=== PATIENT | male | born 1985 | race Caucasian/White ===

== ENCOUNTER → 2016-04-05 | Outpatient (REF) | payer OTHER ==
[~2016-04-05] MED LIST: /MAGN40TA PO; ADDE20CA PO; CLAR1TAB2 PO; FIRS3SUS PO; HYDR10EL PO; HYDRO50TAB PO; IRON65TA PO; KRATOM; NAPR1TAB86 PO
[2016-04-05 19:56] LABS: ALBUMIN 2.8 GM/DL (3.2-5.2); ALBUMIN/GLOBULIN RATIO 1.08 (1.00-1.93); ALKALINE PHOSPHATASE 62 U/L (45-117); ALT/SGPT 31 U/L (12-78); ANION GAP 8 MEQ/L (8-16); AST/SGOT 23 U/L (15-37); BILIRUBIN,TOTAL 0.2 MG/DL (0.2-1.0); BLOOD UREA NITROGEN 14 MG/DL (7-18); CALCIUM LEVEL 7.9 MG/DL (8.5-10.1); CARBON DIOXIDE LEVEL 28 MEQ/L (21-32); CHLORIDE LEVEL 107 MEQ/L (98-107); CREATININE FOR GFR 0.91 MG/DL (0.70-1.30); GLOMERULAR FILTRATION RATE > 60.0 (>60); GLUCOSE, FASTING 102 MG/DL (70-105); POTASSIUM SERUM 4.1 MEQ/L (3.5-5.1); SODIUM LEVEL 143 MEQ/L (136-145); TOTAL PROTEIN 5.4 GM/DL (6.4-8.2)
[2016-04-05 22:06] LABS: DIFF SLIDE NUMBER 336; MEAN CORPUSCULAR HEMOGLOBIN 17.9 pg (27.0-33.0); MEAN CORPUSCULAR HGB CONC 25.3 g/dl (32.0-36.5); MEAN CORPUSCULAR VOLUME 70.5 fl (80.0-96.0); PLATELET COUNT, AUTOMATED 449 k/mm3 (150-450); RED CELL DISTRIBUTION WIDTH 32.6 % (11.5-14.5); WHITE BLOOD COUNT 9.4 K/mm3 (4.0-10.0)
[2016-04-05 22:48] LABS: BASOPHILS 1 % (0-4); EOSINOPHILS 6 % (0-5); NUCLEATED RED BLOOD CELL 1 % (0-0)
[2016-04-05 22:49] LABS: ANISOCYTOSIS 4+; HYPOCHROMASIA 3+; MICROCYTOSIS 2+
[2016-04-05 22:50] LABS: OVALOCYTES 2+; POLYCHROMASIA 2+; SCHISTOCYTES 1+
== END ==
LOC: M LABDRAW1 17:24
PROVIDERS: ATTEND Family Medicine
DX: R53.83 Other fatigue (principal)

== ENCOUNTER 2016-04-06 13:20 | Inpatient (IN) | payer BC, OTHER ==
[~2016-04-06] VITALS: Ht 182.9 cm; Wt 80.2 kg
[~2016-04-06 13:20] MED LIST changes: -CLAR1TAB2 PO; -FIRS3SUS PO; -IRON65TA PO; -NAPR1TAB86 PO
[2016-04-06 15:53] LABS: DIFF SLIDE NUMBER 293; MEAN CORPUSCULAR HEMOGLOBIN 17.2 pg (27.0-33.0); MEAN CORPUSCULAR HGB CONC 24.8 g/dl (32.0-36.5); MEAN CORPUSCULAR VOLUME 69.2 fl (80.0-96.0); PLATELET COUNT, AUTOMATED 709 k/mm3 (150-450); RED CELL DISTRIBUTION WIDTH 31.9 % (11.5-14.5); WHITE BLOOD COUNT 8.4 K/mm3 (4.0-10.0)
[2016-04-06 16:11] LABS: ANION GAP 9 MEQ/L (8-16); BLOOD UREA NITROGEN 13 MG/DL (7-18); CALCIUM LEVEL 7.8 MG/DL (8.5-10.1); CARBON DIOXIDE LEVEL 27 MEQ/L (21-32); CHLORIDE LEVEL 107 MEQ/L (98-107); CREATININE FOR GFR 0.95 MG/DL (0.70-1.30); GLOMERULAR FILTRATION RATE > 60.0 (>60); GLUCOSE, FASTING 89 MG/DL (70-105); POTASSIUM SERUM 4.3 MEQ/L (3.5-5.1); SODIUM LEVEL 143 MEQ/L (136-145)
[2016-04-06 16:31] LABS: BASOPHILS 2 % (0-4); EOSINOPHILS 3 % (0-5); NUCLEATED RED BLOOD CELL 1 % (0-0)
[2016-04-06 16:32] LABS: HYPOCHROMASIA 3+; POLYCHROMASIA 2+
[2016-04-06 16:33] LABS: ANISOCYTOSIS 3+; MICROCYTOSIS 3+; OVALOCYTES 2+; POIKILOCYTOSIS 1+; SCHISTOCYTES 1+; TEAR DROP CELLS 1+
[2016-04-06] MEDS ORDERED: ADDE20CA PO (16:47)
[2016-04-06] MEDS ORDERED: NAPR1TAB86 PO (16:47)
[2016-04-06] MEDS ORDERED: CLAR1TAB2 PO (16:47)
[2016-04-06 16:51] LABS: PERCENT SATURATION 1.5 % (19.7-37.4)
[2016-04-06 18:05] LABS: ALBUMIN 2.9 GM/DL (3.2-5.2); ALBUMIN/GLOBULIN RATIO 1.04 (1.00-1.93); ALKALINE PHOSPHATASE 60 U/L (45-117); ALT/SGPT 21 U/L (12-78); AST/SGOT 20 U/L (15-37); BILIRUBIN,DIRECT < 0.1 MG/DL (0.0-0.2); BILIRUBIN,TOTAL 0.2 MG/DL (0.2-1.0); TOTAL PROTEIN 5.7 GM/DL (6.4-8.2)
--- NOTE | 2016-04-06 18:20 | REP ---
Clinical: Anemia with abdominal pain with Findings: Liver and spleen demonstrate parenchymal calcifications suggesting prior granulomas disease. Pancreas, gallbladder, bilateral adrenal glands and kidneys are relatively normal for noncontrast evaluation. The enteric system is without obstruction or obvious acute inflammatory process. Pelvis demonstrates normal bladder and age appropriate prostate/seminal vesicles. No significant ascites. No obvious free air. Musculoskeletal structures without focal osseous abnormality. Lung bases demonstrate minimal dependent changes. Impression: Limited examination due to the lack of contrast material and paucity of intraperitoneal fat. No obvious abnormality identified. Chronic granulomas disease with small parenchymal calcifications in the liver and spleen. Signed by Hamlet Herbert MD 04/06/2016 06:11 P
--- NOTE | 2016-04-06 18:23 | REP ---
Clinical: Anemia with dysphasia. Findings: The bilateral lung negron are relatively well aerated, symmetric and essentially clear. Minimal posterior basilar dependent changes are suggested. No consolidation, nodule or mass lesion. No pleural effusion/reaction or pneumothorax. Small calcified granuloma in the right upper lobe as well as calcified mediastinal/right hilar lymph nodes compatible with prior granulomas disease. Mild cardiomegaly cannot be excluded. No pericardial effusion. Surrounding musculoskeletal structures are intact. Impression: 1. Evidence of prior granulomas disease. 2. Question mild cardiomegaly and left ventricular prominence raising the possibility of cardiomyopathy and cardiology evaluation may be warranted. 3. No acute mediastinal or pleuroparenchymal process. Signed by Hamlet Herbert MD 04/06/2016 06:14 P
--- NOTE | 2016-04-06 20:46 | HPE ---
DATE OF ADMISSION: 04/06/2016 PRIMARY CARE PROVIDER: Dr. Anuel Garcia HISTORY OF PRESENT ILLNESS: The patient is a 30-year-old gentleman with a past medical history significant for esophageal stricture, attention deficit hyperactivity disorder, [facility] for worsening weakness. Patient had a history of difficulty swallowing solid or liquid diet since 7 years old, and his symptoms started to become progressively worse. In 2006 patient had an upper endoscopy with balloon dilatation by Dr. Enciso for his esophageal stricture. Patient continued to have difficulty swallowing, and it was progressively getting worse. In a few days, patient started complaining about gastrointestinal (GI) symptoms that resembled "stomach bug," where the patient had significant decrease in oral intake. Patient has worsening shortness of breath, dizziness, and patient noted to have worsening leg swelling. When patient arrived to the emergency room, patient had normal vital signs. Patient's hemoglobin was 3.5 and hematocrit of 14.2, and hospitalist team was called for admission. ALLERGIES: No known drug allergies. HOME MEDICATIONS: - Claritin 10 mg by mouth at bedtime as needed for allergies - Adderall 20 mg one tablet by mouth daily PAST MEDICAL HISTORY: 1. Seasonal allergies. 2. Attention deficit hyperactivity disorder. 3. History of esophageal stricture diagnosed in 2006. PAST SURGICAL HISTORY: Upper endoscopy with esophageal dilatation by Dr. Enciso in 2006. SOCIAL HISTORY: The patient used to smoke intermittently. He quit three years ago. Denies alcohol use. Denied any illicit drug use. REVIEW OF SYSTEMS: GENERAL: Progressive worsening dizziness, lightheadedness, and fatigue. Denies any fevers, chills. HEENT: No vision change. No auditory changes. CARDIOVASCULAR: No chest pain. No palpitations. RESPIRATORY: Patient started having shortness of breath and most significant during exertion. No cough. No sputum production. GASTROINTESTINAL: Has difficulty tolerating oral or liquid intake. He feels the food is being stuck in his esophagus. He has been trying different ways to increase his oral intake, and this difficulty swallowing started when he was 7 years old. A few days ago, patient started complaining of stomach upset. Denies any blood in stool. MUSCULOSKELETAL: Worsening lower extremity swelling in the last few days. NEUROLOGIC: No numbness or tingling. OBJECTIVE: VITAL SIGNS: Blood pressure is 133/61, pulse is 78, respirations 18, temperature 99.3, pulse oximetry is 99% in room air. Body weight is 82.1 kg, body height is 182.88 cm. GENERAL: Fatigued, pale. No sign of acute distress. Alert and oriented times three. HEENT: Normocephalic, atraumatic. Extraocular motor grossly intact. CARDIOVASCULAR: Positive systolic murmur, best heard at the second intercostal space. Regular rate. LUNGS: Clear to auscultation bilaterally. ABDOMEN: Soft, nontender, nondistended. Bowel sounds present. No rebound. No guarding. EXTREMITIES: 2-3+ pitting edema bilaterally. Very pale and cold extremities. LABORATORY DATA: WBC 8.4, 3.5, hemoglobin 14.2, hematocrit is 37.9. Sodium is 143, potassium 4.3, chloride is 107, carbon dioxide 27, BUN 13, creatinine 0.95, GFR greater than 60, fasting glucose 89, calcium 7.8. Iron 7, TIBC is 464. Total bilirubin is 0.2, direct bilirubin less than 0.1, AST 20, ALT 21, alkaline phosphatase is 60, total protein is 5.7, albumin 2.9. IMAGING STUDIES: CT of the chest without contrast showed evidence of prior granuloma disease. Question cardiomegaly and left ventricular prominence, raising the possibility of cardiomyopathy. No acute mediastinal or pleural parenchymal process. CT of the abdomen and pelvis without contrast showed limited examination due to lack of contrast material and opacity of the intraperitoneal fat. No obvious abnormality identified. Chronic granuloma disease with a small parenchymal calcification at the liver and the spleen. ASSESSMENT AND PLAN: 1. Severe symptomatic anemia. Patient's hemoglobin and hematocrit are in the critical range, hemoglobin of 3.5, hematocrit is 14.1. Patient was admitted to the progressive care unit (PCU) under observation status. Two units of packed red blood cells have been ordered. We will continue to monitor. We will check and hemoglobin and hematocrit every 6 hours, and patient may benefit from 2 more packed red blood cells transfusion. Combined with the history of esophageal stricture and severe iron deficiency anemia, there is concern for [place] syndrome. Dr. Enciso has been consulted. Patient will be placed nothing by mouth after tonight, and patient will have esophagogastroduodenoscopy (EGD) with a possible dilatation tomorrow by Dr. Enciso. 2. History of esophageal stricture. Has scheduled EGD tomorrow. 3. Attention deficit disorder. Continue Adderall. 4. Allergies. Currently asymptomatic. Continue to monitor. 5. Deep vein thrombosis (DVT) prophylaxis. Currently patient will be on thromboembolic deterrents (TEDs) and sequential compression devices.
--- NOTE | 2016-04-06 22:12 | EDDOCDS ---
Physician Documentation [facility] Name: Malik Woodson Age: 30 yrs Sex: Male : 1985 Arrival Date: 04/06/2016 Time: 13:20 Bed 12 Private MD: Anuel Garcia A. Disposition: 04/06 18:24 Critical Care:. pc Disposition: 04/06/16 18:29 Hospitalization ordered by Treasure Everett for Inpatient Admission. Preliminary diagnosis are Iron deficiency anemia - severe, symptomatic , Abnormality of albumin. - Bed requested for M PCU. - Status is Inpatient Admission. mv5 - Condition is Stable. - Problem is new. - Symptoms have improved. HPI: 17:06 This 30 yrs old Male presents to ER via Walkin/Carried/Asstd with complaints pc of Abnormal Lab Results. 17:06 The history is obtained from the patient, the patient's family/friend. 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 He now can not walk more than 5-6 feet without SOB. His family actual state that he has been less and less active for 1-2 years. He denies any abdominal pain, his bowel movements are light fontenot, he has no easy bleeding, no hematuria. He denies any cough, chest pain, joint pain or swelling, no enlarged lymph nodes. He has not had any fevers or chills. He denies any food intolerances, notably glutenHe went ot his PCP yesterday and has labs done, and was called and told to come to the ED KIMBERLY. At their worst, the symptoms were moderate. In the emergency department, the symptoms are unchanged. The patient has not experienced similar symptoms in the past. Historical: - Allergies: no known allergies; - Home Meds: 1. Adderall XR 20 mg oral cp24 once daily (Last dose: Unknown) 2. loratadine 10 mg Oral cap daily (Last dose: 04/05/2016) 3. naproxen Unknown Oral 2 times per day as needed (Last dose: 04/05/2016) - PMHx: Allergies, Seasonal; ADD; esophageal stricture; - PSHx: Upper Endoscopy with esophageal dilatation; - The history from nurses notes was reviewed: and elements of the historical information I have obtained differs from that reported to nursing. - Social history: Smoking status: Patient uses tobacco products, current some day smoker. No barriers to communication noted, The patient speaks fluent Burkinan, Speaks appropriately for age. - : The pt / caregiver states he / she is not on anticoagulants. Home medication list is obtained from the patient. - Hospitalizations: : No recent hospitalization is reported. - Exposure Risk Screening:: None identified. - Immunization history:: All immunizations up-to-date. - Family history: Not pertinent. - Social history:: the patient is a non-smoker, the patient does not drink alcohol. ROS: 17:10 All systems are negative except as listed. pc Exam: 17:10 General Appearance: no acute distress, alert. pc 17:10 EENT: ears, nose and throat normal, pharynx normal, mucous membranes moist pale conjunctiva. 17:10 Neck: The exam reveals no acute abnormalities. ROM is normal and painless. No nuchal rigidity is noted.. 17:10 Respiratory: no respiratory distress, normal breath sounds, chest non-tender. 17:10 CVS: regular pulse rate, regular rhythm, normal S1 and S2, no murmurs, strong peripheral pulses, the capillary refill is slow. 17:10 Abdomen: soft, non-tender, no organomegaly, normal bowel sounds, no masses appreciated, no hernias palpated with/without gravity or Valsalva Rectal exam: stool is guaiac negative, no enlarged inguinal nodes. 17:10 Back: normal inspection. 17:10 Skin: warm, dry, the skin appears pale, diffusely. 17:10 Extremities: The extremities have a grossly normal appearance, are non-tender, without acute ROM abnormalities, no pedal edema. 17:10 Neuro: oriented x 3, cranial nerves normal as tested, no motor deficits, no sensory deficits. 17:10 Psych: normal mood. Vital Signs: 13:22 BP 143 / 59; Pulse 88; Resp 18 S; Temp 99.3(O); Pulse Ox 100% on R/A; Weight 82.1 kg / gr2 181 lbs (R); Height 6 ft. 0 in. (182.88 cm) (R); Pain 3/10; 15:51 BP 133 / 61 (auto/); jc4 15:55 Pulse 78 MON; Pulse Ox 99% ; jc4 19:25 BP 118 / 56 (auto/); mv5 19:26 BP 118 / 56; Pulse 82 MON; Resp 18; Temp 99.3(O); Pulse Ox 99% ; mv5 20:49 BP 143 / 69 (auto/); mv5 20:50 Pulse 76 MON; Pulse Ox 100% ; mv5 21:18 BP 129 / 66 (auto/); mv5 21:20 Pulse 74 MON; Pulse Ox 100% ; mv5 21:31 BP 127 / 61 (auto/); mv5 21:32 Pulse 84 MON; Pulse Ox 100% ; mv5 13:22 Body Mass Index 24.55 (82.10 kg, 182.88 cm) gr2 MDM: 15:21 IV Saline Lock ordered. kr3 15:22 CBC with Diff Ordered. EDMS 15:22 MED Profile Ordered. EDMS 15:22 Type & Screen Ordered. EDMS 16:08 DIFFERENTIAL NO CHARGE Ordered. EDMS 16:08 PLATELET ESTIMATE Ordered. EDMS 16:09 CBC with Diff Reviewed. pc 16:11 Transfuse PRBC's 2 units, ensure PRBCs ordered in lab ordered. pc 16:12 Iron (fe) Ordered. EDMS 16:12 TIBC Ordered. EDMS 16:12 Type and Cross, Packed Cells Ordered. EDMS 16:34 MED Profile Reviewed. pc 16:34 Type & Screen Reviewed. pc 16:36 Financial registration complete. [email or web address] 16:45 CBC with Diff Reviewed. pc 16:45 PLATELET ESTIMATE Reviewed. pc 17:01 [facility] Payment Agreement was scanned into [employer] and attached to record. [email or web address] 17:10 Differential Diagnosis: symptomatic anemia UO. Plan: labs, imaging. pc 17:14 TIBC Reviewed. pc 17:16 BED REQUEST+ADM ordered. EDMS 17:40 CT Chest Without Contrast Ordered. EDMS 17:40 CT ABD & PELVIS: No Contrast Ordered. EDMS 18:24 Data reviewed: old medical records, vital signs, nurses notes, lab test results. Test pc interpretation: LAB - all labs as ordered have been reviewed, interpreted and considered in the overall management of the clinical presentation;. The patient has been re-examined and re-evaluated. The patient's symptoms have markedly improved after treatment. Physician consultation: Dr. Treasure Everett regarding admission. Disposition: The historical points, examination findings, and any diagnostic results supporting the provided diagnosis, were discussed with the patient or legal guardian. The need for further work-up and/or treatment in the hospital was explained. 19:10 Admission / Observation Status ordered. EDMS 19:10 PACKED CELLS Ordered. EDMS 19:11 FULL LIQUIDS DIET ordered. EDMS 19:33 COMPLETE BLOOD COUNT Ordered. EDMS 19:33 BASIC METABOLIC PROFILE Ordered. EDMS 19:33 HEMOGLOBIN & HEMATOCRIT Ordered. EDMS 20:56 FULL LIQUIDS DIET ordered. EDMS 20:56 NPO FOR TEST/PROCEDURE ordered. [facility] Critical Care Time: 18:24 Critical care time: Bedside Care: 25 minutes, Consultation: 10 minutes, Family pc Intervention: 15 minutes. Total time: 50 minutes Signatures: Dispatcher [employer] EDMD Josue Noel MD MD pc Lopresti, Mary-Elizabeth, Intensive Care Specialist Unit ml3 Rose Mcgregor,RN RN kr3 Micaela Richter, Reg Reg ks16 Cecilia PhillipsRN RN mv5 The chart was reviewed and I authenticate all verbal orders and agree with the evaluation and treatment provided.Corrections: (The following items were deleted from the chart) 16:15 16:13 TYPE & SCREEN ordered. 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 He now can not walk more than 5-6 feet without SOB. His family actual state that he has been less and less active for 1-2 years. He denies any abdominal pain, his bowel movements are light fontenot, he has no easy bleeding, no hematuria. He denies any cough, chest pain, joint pain or swelling, no enlarged lymph nodes. He has not had any fevers or chills. He went ot his PCP yesterday and has labs done, and was called and told to come to the ED KIMBERLY. pc 17:13 17:10 Abdomen: soft, non-tender, no organomegaly, normal bowel sounds, no masses pc appreciated, no hernias palpated with/without gravity or Valsalva Rectal exam: stool is guaiac negative, pc 17:51 17:40 LIVER PROFILE+LAB ordered. [facility] EDMD 19:12 19:10 TYPE & SCREEN ordered. EDMS EDMS 20:56 19:11 NPO DIET ordered. EDMS EDMS Attachments: 17:01 [facility] Payment Agreement [email or web address]
--- NOTE | 2016-04-06 22:12 | EDDOCDS ---
Nurse's Notes [facility] Name: Malik Woodson Age: 30 yrs Sex: Male : 1985 Arrival Date: 04/06/2016 Time: 13:20 Bed 12 Private MD: Anuel Garcia A. Diagnosis: Iron deficiency anemia-severe, symptomatic ;Abnormality of albumin Presentation: 04/06 13:41 Presenting complaint: Patient states: was sent to ED for severe anemia. Feeling bad for kr3 several months and saw PCP 1 day ago. Denies dark stools or vomiting. Adult Sepsis Screening: The patient does not have new or worsening altered mentation. Patient's respiratory rate is less than 22. Systolic blood pressure is greater than 100. Patient has a qSOFA score of 0- Negative Sepsis Screen. Suicide/Homicide risk assessment- the patient denies having any suicidal and/or homicidal ideations and does not present with any other emotional, behavioral or mental health complaints. Status: Patient is not a hr shared services consultant or dependent. Transition of care: patient was received from a primary care office; Dr Garcia. 13:41 Acuity: OTILIO Level 3 kr3 13:41 Method Of Arrival: Walkin/Carried/Asstd kr3 Triage Assessment: 13:44 General: Appears in no apparent distress, comfortable, Behavior is cooperative. Pain: kr3 Denies pain. Pt Declines HIV testing. Respiratory: Reports shortness of breath on exertion. GI:. GI: Denies nausea, vomiting. Derm: Reports swelling to abdomen and legs for several days. Historical: - Allergies: no known allergies; - Home Meds: 1. Adderall XR 20 mg oral cp24 once daily (Last dose: Unknown) 2. loratadine 10 mg Oral cap daily (Last dose: 04/05/2016) 3. naproxen Unknown Oral 2 times per day as needed (Last dose: 04/05/2016) - PMHx: Allergies, Seasonal; ADD; esophageal stricture; - PSHx: Upper Endoscopy with esophageal dilatation; - The history from nurses notes was reviewed: and elements of the historical information I have obtained differs from that reported to nursing. - Social history: Smoking status: Patient uses tobacco products, current some day smoker. No barriers to communication noted, The patient speaks fluent Armenian, Speaks appropriately for age. - : The pt / caregiver states he / she is not on anticoagulants. Home medication list is obtained from the patient. - Hospitalizations: : No recent hospitalization is reported. - Exposure Risk Screening:: None identified. - Immunization history:: All immunizations up-to-date. - Family history: Not pertinent. - Social history:: the patient is a non-smoker, the patient does not drink alcohol. Screenin:58 Screening information is obtained from the patient. Fall risk: At risk due to dizziness ja5 upon exertion . Assistance ADL's: requires no assistance with activities of daily living. Abuse/DV Screen: The patient / caregiver reports he/she is: not in a situation that causes fear, pain or injury. Nutritional screening: On no prescribed diet. Advance Directives: Currently, there is no health care proxy. There is no active DNR order. There is no living will. There is no Power of Offset Press Operator Helper. home support is adequate. Assessment: 15:54 General: Appears in no apparent distress, Behavior is appropriate for age, cooperative. ja5 Pain: Denies pain. Neurological: Level of Consciousness is awake, alert, Oriented to person, place, time. Cardiovascular: Capillary refill is > 3 seconds Heart tones S1 S2 present Edema to bilateral ankles, patient also states he has been experiencing swelling to abdomen and face Rhythm is sinus rhythm No ectopy. Respiratory: Airway is patent Respiratory effort is even, unlabored, Respiratory pattern is regular, symmetrical, Breath sounds are clear bilaterally. Derm: Skin is intact, Skin is pale. 17:43 General: First unit of PRBC is infusing. Patient is awake, alert, oriented, pale to ja5 color with even unlabored respirations O2 sat 98%, SR on director of cardiac cath lab. He was educated on blood transfusions and possible reactions, patient states he feels fine at this time. . 19:26 General: Blood products infusing, pt tolerating well.. mv5 19:29 General: Appears in no apparent distress, comfortable, Behavior is cooperative, mv5 pleasant, Pt reports feeling hungry but has no other complaints at this time.. Pain: Denies pain. Neurological: Level of Consciousness is awake, alert, Oriented to person, place, time. Cardiovascular: Capillary refill is > 3 seconds Rhythm is sinus rhythm No ectopy. Respiratory: Airway is patent Respiratory effort is even, unlabored, Respiratory pattern is regular, symmetrical. Derm: Skin is intact, Skin is pale, Skin temperature is warm. 20:53 General: Appears in no apparent distress, comfortable, Behavior is cooperative, mv5 pleasant. Pain: Denies pain. Neurological: Level of Consciousness is awake, alert, Oriented to person, place, time. Cardiovascular: Rhythm is sinus rhythm No ectopy. Respiratory: Airway is patent Respiratory effort is even, unlabored, Respiratory pattern is regular, symmetrical. Derm: Skin is intact, Skin is pale, Skin temperature is warm. 22:04 General: Appears in no apparent distress, comfortable, Pt sitting up watching TV.. mv5 Pain: Denies pain. Neurological: Level of Consciousness is awake, alert, Oriented to person, place, time. Cardiovascular: Rhythm is sinus rhythm No ectopy. Respiratory: Airway is patent Respiratory effort is even, unlabored, Respiratory pattern is regular, symmetrical. Derm: Skin is pale, Skin temperature is warm. Vital Signs: 13:22 BP 143 / 59; Pulse 88; Resp 18 S; Temp 99.3(O); Pulse Ox 100% on R/A; Weight 82.1 kg gr2 (R); Height 6 ft. 0 in. (182.88 cm) (R); Pain 3/10; 15:51 BP 133 / 61 (auto/); jc4 15:55 Pulse 78 MON; Pulse Ox 99% ; jc4 19:25 BP 118 / 56 (auto/); mv5 19:26 BP 118 / 56; Pulse 82 MON; Resp 18; Temp 99.3(O); Pulse Ox 99% ; mv5 20:49 BP 143 / 69 (auto/); mv5 20:50 Pulse 76 MON; Pulse Ox 100% ; mv5 21:18 BP 129 / 66 (auto/); mv5 21:20 Pulse 74 MON; Pulse Ox 100% ; mv5 21:31 BP 127 / 61 (auto/); mv5 21:32 Pulse 84 MON; Pulse Ox 100% ; mv5 13:22 Body Mass Index 24.55 (82.10 kg, 182.88 cm) gr2 Vitals: 13:22 Log In Time: April 06, 2016 at 13:22. gr2 ED Course: 13:22 Patient visited by Lauryn Staples. gr2 13:22 Anuel Garcia is Private Physician. gr2 13:22 Patient moved to Waiting gr2 13:24 Patient visited by Lauryn Staples. gr2 13:24 Patient moved to Pre RCE gr2 13:42 Triage Initiated kr3 14:09 Valerie Elizalde,RN is Primary Nurse. kr3 14:09 Rose Mcgregor,RN is Primary Nurse. kr3 14:09 Patient moved to Triage 1 kr3 15:27 Type & Screen Sent. ar3 15:27 MED Profile Sent. ar3 15:27 CBC with Diff Sent. ar3 15:28 Inserted saline lock: 20 gauge in right antecubital area and blood collected. The kr3 patient tolerated the procedure well. 15:41 Josue Noel MD is Attending Physician. pc 15:42 Roxana Fonseca RN is Primary Nurse. kr3 15:42 Viki Ramirez,JAROCHO is Primary Nurse. kr3 15:42 Patient moved to 12 kr3 16:06 The patient / caregiver is instructed regarding the plan of care and ED course. jc4 16:07 Patient visited by Roxana Fonseca RN. jc4 16:09 Patient visited by Josue Noel MD. pc 16:09 DIFFERENTIAL NO CHARGE Sent. jc4 16:37 TIBC Sent. kcs 16:37 Iron (fe) Sent. kcs 16:42 Patient visited by Roxana Fonseca RN. jc4 17:01 [facility] Payment Agreement was scanned into [employer] and attached to record. ks16 17:42 Patient visited by Viki Ramirez,JAROCHO. ja5 18:27 Treasure Everett ophthalmology assistant. ys2 18:28 Treasure Everett is Hospitalizing Provider. pc 18:30 CT ABD & PELVIS: No Contrast Returned. EDMS 18:30 CT Chest Without Contrast Returned. EDMS 19:01 Primary Nurse role handed off by Rose Mcgregor,JAROCHO kr3 19:02 Primary Nurse role handed off by Roxana Fonseca RN jc4 19:02 Primary Nurse role handed off by Viki Ramirez,JAROCHO jc4 19:04 Cecilia Phillips,RN is Primary Nurse. mv5 19:29 Patient visited by Amado Moore PCA. kb5 19:32 Patient visited by Cecilia Phillips,JAROCHO. mv5 22:08 No procedures done that require assistance. mv5 22:08 Blood products: PRBCs X 2 units given. Second unit transfusing now. mv5 Order Results: Lab Order: CBC with Diff; SPEC'M 04/06/16 15:27 Test: WHITE BLOOD COUNT; Value: 8.4; Range: 4.0-10.0; Units: K/mm3; Status: F Test: RED BLOOD COUNT; Value: 2.05; Range: 4.30-6.10; Abnormal: Below low normal; Units: M/mm3; Status: F Test: HEMOGLOBIN; Value: 3.5; Range: 14.0-18.0; Abnormal: Critical Low; Units: g/dl; Status: F Test: HEMATOCRIT; Value: 14.2; Range: 42.0-52.0; Abnormal: Below low normal; Units: %; Status: F Test: MEAN CORPUSCULAR VOLUME; Value: 69.2; Range: 80.0-96.0; Abnormal: Below low normal; Units: fl; Status: F Test: MEAN CORPUSCULAR HEMOGLOBIN; Value: 17.2; Range: 27.0-33.0; Abnormal: Below low normal; Units: pg; Status: F Test: MEAN CORPUSCULAR HGB CONC; Value: 24.8; Range: 32.0-36.5; Abnormal: Below low normal; Units: g/dl; Status: F Test: RED CELL DISTRIBUTION WIDTH; Value: 31.9; Range: 11.5-14.5; Abnormal: Above high normal; Units: %; Status: F Test: PLATELET COUNT, AUTOMATED; Value: 709; Range: 150-450; Abnormal: Above high normal; Units: k/mm3; Status: F Test: NEUTROPHILS; Value: 72; Range: 35-75; Units: %; Status: F Test: LYMPHOCYTES; Value: 14; Range: 16-52; Abnormal: Below low normal; Units: %; Status: F Test: MONOCYTES; Value: 9; Range: 0-8; Abnormal: Above high normal; Units: %; Status: F Test: EOSINOPHILS; Value: 3; Range: 0-5; Units: %; Status: F Test: BASOPHILS; Value: 2; Range: 0-4; Units: %; Status: F Test: NUCLEATED RED BLOOD CELL; Value: 1; Range: 0-0; Abnormal: Above high normal; Units: %; Status: F Test: POLYCHROMASIA; Value: 2+; Status: F Test: HYPOCHROMASIA; Value: 3+; Status: F Test: POIKILOCYTOSIS; Value: 1+; Status: F Test: ANISOCYTOSIS; Value: 3+; Status: F Test: MICROCYTOSIS; Value: 3+; Status: F Test: SCHISTOCYTES; Value: 1+; Status: F Test: TEAR DROP CELLS; Value: 1+; Status: F Test: OVALOCYTES; Value: 2+; Status: F Lab Order: MED Profile; SPEC'M 04/06/16 15:27 Test: GLUCOSE, FASTING; Value: 89; Range: 70-105; Units: MG/DL; Status: F Test: BLOOD UREA NITROGEN; Value: 13; Range: 7-18; Units: MG/DL; Status: F Test: CREATININE FOR GFR; Value: 0.95; Range: 0.70-1.30; Units: MG/DL; Status: F Test: GLOMERULAR FILTRATION RATE; Value: > 60.0; Range: >60; Status: F Test: SODIUM LEVEL; Value: 143; Range: 136-145; Units: MEQ/L; Status: F Test: POTASSIUM SERUM; Value: 4.3; Range: 3.5-5.1; Units: MEQ/L; Status: F Test: CHLORIDE LEVEL; Value: 107; Range: 98-107; Units: MEQ/L; Status: F Test: CARBON DIOXIDE LEVEL; Value: 27; Range: 21-32; Units: MEQ/L; Status: F Test: ANION GAP; Value: 9; Range: 8-16; Units: MEQ/L; Status: F Test: CALCIUM LEVEL; Value: 7.8; Range: 8.5-10.1; Abnormal: Below low normal; Units: MG/DL; Status: F Test Note: ; Units are mL/min/1.73 m2 Chronic Kidney Disease Staging per NKF: Stage I & II GFR >=60 Normal to Mildly Decreased Stage III GFR 30-59 Moderately Decreased Stage IV GFR 15-29 Severely Decreased Stage V GFR <15 Very Little GFR Left ESRD GFR <15 on PAIRER Lab Order: Type & Screen; SPEC'04/06/16 15:27 Test: BLOOD TYPE; Value: O POS; Status: F Test: AB SCREEN (INDIRECT BENIGNO)VIS; Value: NEGATIVE; Status: F Lab Order: PLATELET ESTIMATE; SPEC'M 04/06/16 15 Test: PLATELET ESTIMATE; Value: INCREASED; Range: NORMAL; Status: F Lab Order: TIBC; SPEC'M 04/06/16 15: Test: IRON (FE); Value: 7; Range: 65-175; Abnormal: Below low normal; Units: UG/DL; Status: F Test: TOTAL IRON BINDING CAPACITY; Value: 464; Range: 250-450; Abnormal: Above high normal; Units: UG/DL; Status: F Test: PERCENT SATURATION; Value: 1.5; Range: 19.7-37.4; Abnormal: Below low normal; Units: %; Status: F Lab Order: LIVER PROFILE; SPEC'M 04/06/16 Test: AST/SGOT; Value: 20; Range: 15-37; Units: U/L; Status: F Test: ALT/SGPT; Value: 21; Range: 12-78; Units: U/L; Status: F Test: ALKALINE PHOSPHATASE; Value: 60; Range: 45-117; Units: U/L; Status: F Test: BILIRUBIN,TOTAL; Value: 0.2; Range: 0.2-1.0; Units: MG/DL; Status: F Test: BILIRUBIN,DIRECT; Value: < 0.1; Range: 0.0-0.2; Units: MG/DL; Status: F Test: TOTAL PROTEIN; Value: 5.7; Range: 6.4-8.2; Abnormal: Below low normal; Units: GM/DL; Status: F Test: ALBUMIN; Value: 2.9; Range: 3.2-5.2; Abnormal: Below low normal; Units: GM/DL; Status: F Test: ALBUMIN/GLOBULIN RATIO; Value: 1.04; Range: 1.00-1.93; Status: F Radiology Order: CT Chest Without Contrast Test: CT Chest Without Contrast REASON FOR EXAMINATION: anemia, dysphagia; Clinical: Anemia with dysphasia.; ; Findings:; The bilateral lung negron are relatively well aerated, symmetric and essentially; clear. Minimal posterior basilar dependent changes are suggested. No; consolidation, nodule or mass lesion. No pleural effusion/reaction or; pneumothorax. Small calcified granuloma in the right upper lobe as well as; calcified mediastinal/right hilar lymph nodes compatible with prior granulomas; disease. Mild cardiomegaly cannot be excluded. No pericardial effusion.; Surrounding musculoskeletal structures are intact.; ; Impression:; 1. Evidence of prior granulomas disease.; 2. Question mild cardiomegaly and left ventricular prominence raising the; possibility of cardiomyopathy and cardiology evaluation may be warranted.; 3. No acute mediastinal or pleuroparenchymal process.; ; ; Signed by; Hamlet Herbert MD 04/06/2016 06:14 P; Radiology Order: CT ABD & PELVIS: No Contrast Test: CT ABD & PELVIS: No Contrast REASON FOR EXAMINATION: anemia, appetite change; Clinical: Anemia with abdominal pain with; ; Findings:; Liver and spleen demonstrate parenchymal calcifications suggesting prior; granulomas disease. Pancreas, gallbladder, bilateral adrenal glands and kidneys; are relatively normal for noncontrast evaluation. The enteric system is without; obstruction or obvious acute inflammatory process. Pelvis demonstrates normal; bladder and age appropriate prostate/seminal vesicles. No significant ascites.; No obvious free air. Musculoskeletal structures without focal osseous; abnormality. Lung bases demonstrate minimal dependent changes.; ; Impression:; Limited examination due to the lack of contrast material and paucity of; intraperitoneal fat. No obvious abnormality identified. Chronic granulomas; disease with small parenchymal calcifications in the liver and spleen.; ; ; Signed by; Hamlet Herbert MD 04/06/2016 06:11 P; Outcome: 18:29 Decision to Hospitalize by Provider. 22:08 Discharge Assessment: Patient awake, alert and oriented x 3. No cognitive and/or mv5 functional deficits noted. Patient verbalized understanding of disposition instructions. patient administered narcotics - no. The following High Risk Discharge criteria are identified: None. Admitted to PCU. Condition: stable. Condition: stable. 22:08 CT Study completed. Admission hand-off: Report called to PCU. Property :Personal mv5 belongings accompany Pt. 22:11 Patient left the ED. mv5 Signatures: Dispatcher [employer] EDMS Josue Noel MD MD pc Sleeman, Kacey RN Rose Childers RN RN kr3 Amado Moore, RN PRIOR AUTHORIZATION RN PRIOR AUTHORIZATION kb5 Radha Leblanc, RN PRIOR AUTHORIZATION RN PRIOR AUTHORIZATION ar3 Roxana Fonseca RN RN jc4 Lauryn Staples gr2 Treasure Everett ys2 Micaela Richter, Reg Reg ks16 Viki RamirezRN RN ja5 Cecilia PhillipsRN RN mv5 Corrections: (The following items were deleted from the chart) 16:04 15:54 Cardiovascular: Capillary refill is > 3 seconds Heart tones S1 S2 present Rhythm ja5 is sinus rhythm No ectopy. ja5 17:06 13:44 PSHx: none; kr3 pc MTDD
[2016-04-06 22:45] VITALS: BP 144/83
[2016-04-07] VITALS (17 sets, daily range): BP systolic 125–150; BP diastolic 71–84
[2016-04-07 07:22] LABS: MEAN CORPUSCULAR HEMOGLOBIN 23.1 pg (27.0-33.0); MEAN CORPUSCULAR HGB CONC 30.1 g/dl (32.0-36.5); RED CELL DISTRIBUTION WIDTH 27.3 % (11.5-14.5); WHITE BLOOD COUNT 9.5 K/mm3 (4.0-10.0)
[2016-04-07 07:27] LABS: MEAN CORPUSCULAR VOLUME 76.8 fl (80.0-96.0)
[2016-04-07 07:31] LABS: ANION GAP 8 MEQ/L (8-16); BLOOD UREA NITROGEN 9 MG/DL (7-18); CALCIUM LEVEL 8.2 MG/DL (8.5-10.1); CARBON DIOXIDE LEVEL 27 MEQ/L (21-32); CHLORIDE LEVEL 108 MEQ/L (98-107); CREATININE FOR GFR 0.88 MG/DL (0.70-1.30); GLOMERULAR FILTRATION RATE > 60.0 (>60); GLUCOSE, FASTING 99 MG/DL (70-105); POTASSIUM SERUM 4.2 MEQ/L (3.5-5.1); SODIUM LEVEL 143 MEQ/L (136-145)
[2016-04-07] MEDS: ADDERALL 5 MG TAB PO SCH ×2 (08:49→13:19)
[2016-04-07] MEDS ORDERED: NS 1,000 ML IV SCH (09:00)
[2016-04-07] MEDS ORDERED: PANTOPRAZOLE 40MG INJ (PROTONIX) (C9113) IV SCH (09:00)
[2016-04-07] MEDS ORDERED: fentaNYL 100 MCG/2 ML INJECTION (J3010) As Ordered ONE (11:31)
[2016-04-07] MEDS ORDERED: PROPOFOL 200 MG/20 ML VIAL As Ordered ONE (11:54)
[2016-04-07] MEDS ORDERED: LIDOCAINE 2% INJ 100 MG/5 ML SDV (FOR ANES.) As Ordered ONE (11:54)
--- NOTE | 2016-04-07 12:00 | ROOR ---
Patient Name: Malik Woodson Procedure Date: 04/07/2016 11:29 AM Date of : 1985 Age: 30 Room: [facility] Gender: Male Note Status: Finalized Procedure: Upper GI endoscopy + Balloon Dilatation + Biopsies + small bowel biopsies Indications: Iron deficiency anemia, Dysphagia Providers: Hussain Enciso MD Referring MD: Anuel Garcia MD Requesting Provider: Medicines: Monitored Anesthesia Care Complications: No immediate complications. Procedure: Pre-Anesthesia Assessment: - The heart rate, respiratory rate, oxygen saturations, blood pressure, adequacy of pulmonary ventilation, and response to care were monitored throughout the procedure. The Endoscope was introduced through the mouth, and advanced to the second part of duodenum. The upper GI endoscopy was accomplished without difficulty. The patient tolerated the procedure well. Findings: The Z-line was regular and was found 40 cm from the incisors. Mucosal changes including ringed esophagus, small-caliber esophagus and tight circumferential folds were found in the upper third of the esophagus. Esophageal findings were graded using the Eosinophilic Esophagitis Endoscopic Reference Score (EoE-EREFS) as: Rings Grade 3 Severe (distinct rings that do not permit passage of diagnostic 8-10 mm endoscope) and Stricture present. A TTS dilator was passed through the scope. Dilation with a 6-7-8 mm balloon dilator was performed to 6 mm, 7 mm and 8 mm. A TTS dilator was passed through the scope. Dilation with an 8-9-10 mm balloon dilator was performed to 8 mm, 9 mm and 10 mm. Biopsies were obtained from the proximal and distal esophagus with cold forceps for histology of suspected eosinophilic esophagitis. No other significant abnormalities were identified in a careful examination of the stomach. The exam of the duodenum was otherwise normal. Biopsies for histology were taken with a cold forceps in the first portion of the duodenum for evaluation of celiac disease. The exam was otherwise without abnormality. Impression: - Z-line regular, 40 cm from the incisors. - Esophageal mucosal changes suggestive of eosinophilic esophagitis. Dilated. Biopsied. - The examination was otherwise normal. - Biopsies were taken with a cold forceps for evaluation of celiac disease. - The examination was otherwise normal. Recommendation: - Return patient to [facility] for ongoing care. - Follow an antireflux regimen. - Use Protonix (pantoprazole) 40 mg PO BID. - Await pathology results. - The findings and recommendations were discussed with the patient. Hussain Enciso MD Hussain Enciso MD 04/07/2016 12:00:06 PM This report has been signed electronically. Number of Addenda: 0 Note Initiated On: 04/07/2016 11:29 AM Estimated Blood Loss: Estimated blood loss: none.
[2016-04-07] MEDS ORDERED: LIDOCAINE VISCOUS 2% SOLN 15ML UDC SS PRN (15:30)
[2016-04-07 16:37] LABS: FERRITIN 2 NG/ML (26-388)
[2016-04-07] MEDS ORDERED: IRON SUCROSE 100 MG/5 ML INJ (J1756) IV ONE (16:45)
[2016-04-07] MEDS ORDERED: IRON SUCROSE 25 MG in NS 50 ML IV ONE (18:00)
[2016-04-07] MEDS ORDERED: IRON SUCROSE 175 MG in NS 100 ML IV ONE (20:00)
[2016-04-07] MEDS ORDERED: PANTOPRAZOLE 40MG TAB (PROTONIX) PO SCH (21:00)
[2016-04-07] MEDS: LANSOPRAZOLE SUSPENSION 30 MG/10 ML ORAL SYRINGE (FIRST-LANSOPRAZOLE) PO SCH (22:27)
--- NOTE | 2016-04-07 23:10 | IPN ---
DATE: 04/07/2016 The patient is feeling well when I see him in the morning. Later in the afternoon he is complaining of some pain after his procedure which is 3 out of 10. He is able to swallow without difficulty. He has already had soft foods. Temperature 98.3, pulse 69, respiratory rate 16. Blood pressure 132/93. 97% on room air. Intake and output (I and O) notable for a negative fluid balance of -260. He is awake and appropriately interactive. Pleasantly conversant. Breathing is symmetrical, rested. Heart is in regular rate and rhythm. Abdomen is soft, doughy nontender. Hemoglobin is increased to 7.1. Creatinine is 0.88. ASSESSMENT: This is a 30-year-old with severe iron deficiency anemia. PLAN: As follows: 1. Hematologic. The patient is most likely iron deficiency anemia, although ferritin has not yet been resulted. I plan to order iron sucrose as I am concerned about his absorption, inability to take pills. The patient will require a colonoscopy and hemoccult stool for further workup. Platelet cell count is minimally elevated. White cell count within normal limits. Patient has eosinophilic esophagitis. Will be treated with twice daily proton pump inhibitor (PPI). Will try Prevacid liquid first. The patient has difficulty swallowing pills. 2. The patient has attention deficit disorder. Is continuing on Adderall. 3. The patient has significant outpatient use of Kratom. This is an herbal supplement. It is unclear to me whether or not this factors in to any of his presentation. 4. The patient has mechanical deep venous thrombosis (DVT) prophylaxis.
[2016-04-08] VITALS: BP 116/68
[2016-04-08 00:30] VITALS: BP 135/84
[2016-04-08 07:14] LABS: MEAN CORPUSCULAR HEMOGLOBIN 23.7 pg (27.0-33.0); MEAN CORPUSCULAR HGB CONC 30.2 g/dl (32.0-36.5); MEAN CORPUSCULAR VOLUME 78.6 fl (80.0-96.0); RED CELL DISTRIBUTION WIDTH 26.6 % (11.5-14.5); RETIC HEMOGLOBIN CONTENT CHr 27.8 PG (24-36); RETICULOCYTE % ADVIA2120 0.7 % (0.5-1.5); WHITE BLOOD COUNT 7.5 K/mm3 (4.0-10.0)
[2016-04-08 07:25] LABS: ANION GAP 8 MEQ/L (8-16); BLOOD UREA NITROGEN 6 MG/DL (7-18); CALCIUM LEVEL 8.1 MG/DL (8.5-10.1); CARBON DIOXIDE LEVEL 28 MEQ/L (21-32); CHLORIDE LEVEL 108 MEQ/L (98-107); CREATININE FOR GFR 0.96 MG/DL (0.70-1.30); GLOMERULAR FILTRATION RATE > 60.0 (>60); GLUCOSE, FASTING 94 MG/DL (70-105); POTASSIUM SERUM 3.8 MEQ/L (3.5-5.1); SODIUM LEVEL 144 MEQ/L (136-145)
[2016-04-08 08:00] VITALS: BP 132/78
[2016-04-08] MEDS ORDERED: FIRS3SUS PO (09:04)
[2016-04-08] MEDS ORDERED: IRON65TA PO (09:04)
[2016-04-08] MEDS: ADDERALL 5 MG TAB PO SCH (10:34)
[2016-04-08] MEDS: LANSOPRAZOLE SUSPENSION 30 MG/10 ML ORAL SYRINGE (FIRST-LANSOPRAZOLE) PO SCH (10:34)
[2016-04-08 13:30] LABS: FOLATE 10.2 NG/ML (>5.4)
--- NOTE | 2016-04-08 23:12 | EDDOCDS ---
Physician Documentation [facility] Name: Malik Woodson Age: 30 yrs Sex: Male : 1985 Arrival Date: 04/06/2016 Time: 13:20 Bed 12 Private MD: Anuel Garcia A. Disposition: 04/06 18:24 Critical Care:. pc Disposition: 04/06/16 18:29 Hospitalization ordered by Treasure Everett for Inpatient Admission. Preliminary diagnosis are Iron deficiency anemia - severe, symptomatic , Abnormality of albumin. - Bed requested for M PCU. - Status is Inpatient Admission. mv5 - Condition is Stable. - Problem is new. - Symptoms have improved. HPI: 17:06 This 30 yrs old Male presents to ER via Walkin/Carried/Asstd with complaints pc of Abnormal Lab Results. 17:06 The history is obtained from the patient, the patient's family/friend. 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 He now can not walk more than 5-6 feet without SOB. His family actual state that he has been less and less active for 1-2 years. He denies any abdominal pain, his bowel movements are light fontenot, he has no easy bleeding, no hematuria. He denies any cough, chest pain, joint pain or swelling, no enlarged lymph nodes. He has not had any fevers or chills. He denies any food intolerances, notably glutenHe went ot his PCP yesterday and has labs done, and was called and told to come to the ED KIM[facility]. At their worst, the symptoms were moderate. In the emergency department, the symptoms are unchanged. The patient has not experienced similar symptoms in the past. Historical: - Allergies: no known allergies; - Home Meds: 1. Adderall XR 20 mg oral cp24 once daily (Last dose: Unknown) 2. loratadine 10 mg Oral cap daily (Last dose: 04/05/2016) 3. naproxen Unknown Oral 2 times per day as needed (Last dose: 04/05/2016) - PMHx: Allergies, Seasonal; ADD; esophageal stricture; - PSHx: Upper Endoscopy with esophageal dilatation; - The history from nurses notes was reviewed: and elements of the historical information I have obtained differs from that reported to nursing. - Social history: Smoking status: Patient uses tobacco products, current some day smoker. No barriers to communication noted, The patient speaks fluent Malian, Speaks appropriately for age. - : The pt / caregiver states he / she is not on anticoagulants. Home medication list is obtained from the patient. - Hospitalizations: : No recent hospitalization is reported. - Exposure Risk Screening:: None identified. - Immunization history:: All immunizations up-to-date. - Family history: Not pertinent. - Social history:: the patient is a non-smoker, the patient does not drink alcohol. ROS: 17:10 All systems are negative except as listed. pc Exam: 17:10 General Appearance: no acute distress, alert. pc 17:10 EENT: ears, nose and throat normal, pharynx normal, mucous membranes moist pale conjunctiva. 17:10 Neck: The exam reveals no acute abnormalities. ROM is normal and painless. No nuchal rigidity is noted.. 17:10 Respiratory: no respiratory distress, normal breath sounds, chest non-tender. 17:10 CVS: regular pulse rate, regular rhythm, normal S1 and S2, no murmurs, strong peripheral pulses, the capillary refill is slow. 17:10 Abdomen: soft, non-tender, no organomegaly, normal bowel sounds, no masses appreciated, no hernias palpated with/without gravity or Valsalva Rectal exam: stool is guaiac negative, no enlarged inguinal nodes. 17:10 Back: normal inspection. 17:10 Skin: warm, dry, the skin appears pale, diffusely. 17:10 Extremities: The extremities have a grossly normal appearance, are non-tender, without acute ROM abnormalities, no pedal edema. 17:10 Neuro: oriented x 3, cranial nerves normal as tested, no motor deficits, no sensory deficits. 17:10 Psych: normal mood. Vital Signs: 13:22 BP 143 / 59; Pulse 88; Resp 18 S; Temp 99.3(O); Pulse Ox 100% on R/A; Weight 82.1 kg / gr2 181 lbs (R); Height 6 ft. 0 in. (182.88 cm) (R); Pain 3/10; 15:51 BP 133 / 61 (auto/); jc4 15:55 Pulse 78 MON; Pulse Ox 99% ; jc4 19:25 BP 118 / 56 (auto/); mv5 19:26 BP 118 / 56; Pulse 82 MON; Resp 18; Temp 99.3(O); Pulse Ox 99% ; mv5 20:49 BP 143 / 69 (auto/); mv5 20:50 Pulse 76 MON; Pulse Ox 100% ; mv5 21:18 BP 129 / 66 (auto/); mv5 21:20 Pulse 74 MON; Pulse Ox 100% ; mv5 21:31 BP 127 / 61 (auto/); mv5 21:32 Pulse 84 MON; Pulse Ox 100% ; mv5 13:22 Body Mass Index 24.55 (82.10 kg, 182.88 cm) gr2 MDM: 15:21 IV Saline Lock ordered. kr3 15:22 CBC with Diff Ordered. EDMS 15:22 MED Profile Ordered. EDMS 15:22 Type & Screen Ordered. EDMS 16:08 DIFFERENTIAL NO CHARGE Ordered. EDMS 16:08 PLATELET ESTIMATE Ordered. EDMS 16:09 CBC with Diff Reviewed. pc 16:11 Transfuse PRBC's 2 units, ensure PRBCs ordered in lab ordered. pc 16:12 Iron (fe) Ordered. EDMS 16:12 TIBC Ordered. EDMS 16:12 Type and Cross, Packed Cells Ordered. EDMS 16:34 MED Profile Reviewed. pc 16:34 Type & Screen Reviewed. pc 16:36 Financial registration complete. [email or web address] 16:45 CBC with Diff Reviewed. pc 16:45 PLATELET ESTIMATE Reviewed. pc 17:01 [facility] Payment Agreement was scanned into [employer] and attached to record. ks16 17:10 Differential Diagnosis: symptomatic anemia UO. Plan: labs, imaging. pc 17:14 TIBC Reviewed. pc 17:16 BED REQUEST+ADM ordered. EDMS 17:40 CT Chest Without Contrast Ordered. EDMS 17:40 CT ABD & PELVIS: No Contrast Ordered. EDMS 18:24 Data reviewed: old medical records, vital signs, nurses notes, lab test results. Test pc interpretation: LAB - all labs as ordered have been reviewed, interpreted and considered in the overall management of the clinical presentation;. The patient has been re-examined and re-evaluated. The patient's symptoms have markedly improved after treatment. Physician consultation: Dr. Treasure Everett regarding admission. Disposition: The historical points, examination findings, and any diagnostic results supporting the provided diagnosis, were discussed with the patient or legal guardian. The need for further work-up and/or treatment in the hospital was explained. 19:10 Admission / Observation Status ordered. EDMS 19:10 PACKED CELLS Ordered. EDMS 19:11 FULL LIQUIDS DIET ordered. EDMS 19:33 COMPLETE BLOOD COUNT Ordered. EDMS 19:33 BASIC METABOLIC PROFILE Ordered. EDMS 19:33 HEMOGLOBIN & HEMATOCRIT Ordered. EDMS 20:56 FULL LIQUIDS DIET ordered. EDMS 20:56 NPO FOR TEST/PROCEDURE ordered. [facility] Critical Care Time: 18:24 Critical care time: Bedside Care: 25 minutes, Consultation: 10 minutes, Family pc Intervention: 15 minutes. Total time: 50 minutes Signatures: Dispatcher [employer] EDWA Josue Noel MD MD pc Lopresti, Mary-Elizabeth, [employer] ml3 Rose Mcgregor,RN RN kr3 Micaela Richter, Reg Reg ks16 Cecilia PhillipsRN RN mv5 The chart was reviewed and I authenticate all verbal orders and agree with the evaluation and treatment provided.Corrections: (The following items were deleted from the chart) 16:15 16:13 TYPE & SCREEN ordered. 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 He now can not walk more than 5-6 feet without SOB. His family actual state that he has been less and less active for 1-2 years. He denies any abdominal pain, his bowel movements are light fontenot, he has no easy bleeding, no hematuria. He denies any cough, chest pain, joint pain or swelling, no enlarged lymph nodes. He has not had any fevers or chills. He went ot his PCP yesterday and has labs done, and was called and told to come to the ED [facility]. pc 17:13 17:10 Abdomen: soft, non-tender, no organomegaly, normal bowel sounds, no masses pc appreciated, no hernias palpated with/without gravity or Valsalva Rectal exam: stool is guaiac negative, pc 17:51 17:40 LIVER PROFILE+LAB ordered. [facility] EDWA 19:12 19:10 TYPE & SCREEN ordered. EDMS EDMS 20:56 19:11 NPO DIET ordered. EDMS EDMS Attachments: 17:01 [facility] Payment Agreement [email or web address] Chart Complete MTDD
--- NOTE | 2016-04-08 23:12 | EDDOCDS ---
Physician Documentation [facility] Name: Malik Woodson Age: 30 yrs Sex: Male : 1985 Arrival Date: 04/06/2016 Time: 13:20 Bed 12 Private MD: Anuel Garcia A. Disposition: 04/06 18:24 Critical Care:. pc Disposition: 04/06/16 18:29 Hospitalization ordered by Treasure Everett for Inpatient Admission. Preliminary diagnosis are Iron deficiency anemia - severe, symptomatic , Abnormality of albumin. - Bed requested for M PCU. - Status is Inpatient Admission. mv5 - Condition is Stable. - Problem is new. - Symptoms have improved. HPI: 17:06 This 30 yrs old Male presents to ER via Walkin/Carried/Asstd with complaints pc of Abnormal Lab Results. 17:06 The history is obtained from the patient, the patient's family/friend. 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 He now can not walk more than 5-6 feet without SOB. His family actual state that he has been less and less active for 1-2 years. He denies any abdominal pain, his bowel movements are light fontenot, he has no easy bleeding, no hematuria. He denies any cough, chest pain, joint pain or swelling, no enlarged lymph nodes. He has not had any fevers or chills. He denies any food intolerances, notably glutenHe went ot his PCP yesterday and has labs done, and was called and told to come to the ED [facility]. At their worst, the symptoms were moderate. In the emergency department, the symptoms are unchanged. The patient has not experienced similar symptoms in the past. Historical: - Allergies: no known allergies; - Home Meds: 1. Adderall XR 20 mg oral cp24 once daily (Last dose: Unknown) 2. loratadine 10 mg Oral cap daily (Last dose: 04/05/2016) 3. naproxen Unknown Oral 2 times per day as needed (Last dose: 04/05/2016) - PMHx: Allergies, Seasonal; ADD; esophageal stricture; - PSHx: Upper Endoscopy with esophageal dilatation; - The history from nurses notes was reviewed: and elements of the historical information I have obtained differs from that reported to nursing. - Social history: Smoking status: Patient uses tobacco products, current some day smoker. No barriers to communication noted, The patient speaks fluent Monegasque, Speaks appropriately for age. - : The pt / caregiver states he / she is not on anticoagulants. Home medication list is obtained from the patient. - Hospitalizations: : No recent hospitalization is reported. - Exposure Risk Screening:: None identified. - Immunization history:: All immunizations up-to-date. - Family history: Not pertinent. - Social history:: the patient is a non-smoker, the patient does not drink alcohol. ROS: 17:10 All systems are negative except as listed. pc Exam: 17:10 General Appearance: no acute distress, alert. pc 17:10 EENT: ears, nose and throat normal, pharynx normal, mucous membranes moist pale conjunctiva. 17:10 Neck: The exam reveals no acute abnormalities. ROM is normal and painless. No nuchal rigidity is noted.. 17:10 Respiratory: no respiratory distress, normal breath sounds, chest non-tender. 17:10 CVS: regular pulse rate, regular rhythm, normal S1 and S2, no murmurs, strong peripheral pulses, the capillary refill is slow. 17:10 Abdomen: soft, non-tender, no organomegaly, normal bowel sounds, no masses appreciated, no hernias palpated with/without gravity or Valsalva Rectal exam: stool is guaiac negative, no enlarged inguinal nodes. 17:10 Back: normal inspection. 17:10 Skin: warm, dry, the skin appears pale, diffusely. 17:10 Extremities: The extremities have a grossly normal appearance, are non-tender, without acute ROM abnormalities, no pedal edema. 17:10 Neuro: oriented x 3, cranial nerves normal as tested, no motor deficits, no sensory deficits. 17:10 Psych: normal mood. Vital Signs: 13:22 BP 143 / 59; Pulse 88; Resp 18 S; Temp 99.3(O); Pulse Ox 100% on R/A; Weight 82.1 kg / gr2 181 lbs (R); Height 6 ft. 0 in. (182.88 cm) (R); Pain 3/10; 15:51 BP 133 / 61 (auto/); jc4 15:55 Pulse 78 MON; Pulse Ox 99% ; jc4 19:25 BP 118 / 56 (auto/); mv5 19:26 BP 118 / 56; Pulse 82 MON; Resp 18; Temp 99.3(O); Pulse Ox 99% ; mv5 20:49 BP 143 / 69 (auto/); mv5 20:50 Pulse 76 MON; Pulse Ox 100% ; mv5 21:18 BP 129 / 66 (auto/); mv5 21:20 Pulse 74 MON; Pulse Ox 100% ; mv5 21:31 BP 127 / 61 (auto/); mv5 21:32 Pulse 84 MON; Pulse Ox 100% ; mv5 13:22 Body Mass Index 24.55 (82.10 kg, 182.88 cm) gr2 MDM: 15:21 IV Saline Lock ordered. kr3 15:22 CBC with Diff Ordered. EDMS 15:22 MED Profile Ordered. EDMS 15:22 Type & Screen Ordered. EDMS 16:08 DIFFERENTIAL NO CHARGE Ordered. EDMS 16:08 PLATELET ESTIMATE Ordered. EDMS 16:09 CBC with Diff Reviewed. pc 16:11 Transfuse PRBC's 2 units, ensure PRBCs ordered in lab ordered. pc 16:12 Iron (fe) Ordered. EDMS 16:12 TIBC Ordered. EDMS 16:12 Type and Cross, Packed Cells Ordered. EDMS 16:34 MED Profile Reviewed. pc 16:34 Type & Screen Reviewed. pc 16:36 Financial registration complete. [email or web address] 16:45 CBC with Diff Reviewed. pc 16:45 PLATELET ESTIMATE Reviewed. pc 17:01 [facility] Payment Agreement was scanned into [employer] and attached to record. [email or web address] 17:10 Differential Diagnosis: symptomatic anemia UO. Plan: labs, imaging. pc 17:14 TIBC Reviewed. pc 17:16 BED REQUEST+ADM ordered. EDMS 17:40 CT Chest Without Contrast Ordered. EDMS 17:40 CT ABD & PELVIS: No Contrast Ordered. EDMS 18:24 Data reviewed: old medical records, vital signs, nurses notes, lab test results. Test pc interpretation: LAB - all labs as ordered have been reviewed, interpreted and considered in the overall management of the clinical presentation;. The patient has been re-examined and re-evaluated. The patient's symptoms have markedly improved after treatment. Physician consultation: Dr. Treasure Everett regarding admission. Disposition: The historical points, examination findings, and any diagnostic results supporting the provided diagnosis, were discussed with the patient or legal guardian. The need for further work-up and/or treatment in the hospital was explained. 19:10 Admission / Observation Status ordered. EDMS 19:10 PACKED CELLS Ordered. EDMS 19:11 FULL LIQUIDS DIET ordered. EDMS 19:33 COMPLETE BLOOD COUNT Ordered. EDMS 19:33 BASIC METABOLIC PROFILE Ordered. EDMS 19:33 HEMOGLOBIN & HEMATOCRIT Ordered. EDMS 20:56 FULL LIQUIDS DIET ordered. EDMS 20:56 NPO FOR TEST/PROCEDURE ordered. [facility] Critical Care Time: 18:24 Critical care time: Bedside Care: 25 minutes, Consultation: 10 minutes, Family pc Intervention: 15 minutes. Total time: 50 minutes Signatures: Dispatcher [employer] EDRI Josue Noel MD MD pc Lopresti, Mary-Elizabeth, Specimen Collector Unit ml3 Rose Mcgregor,RN RN kr3 Micaela Richter, Reg Reg ks16 Cecilia PhillipsRN RN mv5 The chart was reviewed and I authenticate all verbal orders and agree with the evaluation and treatment provided.Corrections: (The following items were deleted from the chart) 16:15 16:13 TYPE & SCREEN ordered. 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 He now can not walk more than 5-6 feet without SOB. His family actual state that he has been less and less active for 1-2 years. He denies any abdominal pain, his bowel movements are light fontenot, he has no easy bleeding, no hematuria. He denies any cough, chest pain, joint pain or swelling, no enlarged lymph nodes. He has not had any fevers or chills. He went ot his PCP yesterday and has labs done, and was called and told to come to the ED [facility]. pc 17:13 17:10 Abdomen: soft, non-tender, no organomegaly, normal bowel sounds, no masses pc appreciated, no hernias palpated with/without gravity or Valsalva Rectal exam: stool is guaiac negative, pc 17:51 17:40 LIVER PROFILE+LAB ordered. [facility] EDRI 19:12 19:10 TYPE & SCREEN ordered. EDMS EDMS 20:56 19:11 NPO DIET ordered. EDMS EDMS Attachments: 17:01 [facility] Payment Agreement [email or web address] Chart Complete MTDD
--- NOTE | 2016-04-08 23:12 | EDDOCDS ---
Nurse's Notes [facility] Name: Malik Woodson Age: 30 yrs Sex: Male : 1985 Arrival Date: 04/06/2016 Time: 13:20 Bed 12 Private MD: Anuel Garcia A. Diagnosis: Iron deficiency anemia-severe, symptomatic ;Abnormality of albumin Presentation: 04/06 13:41 Presenting complaint: Patient states: was sent to ED for severe anemia. Feeling bad for kr3 several months and saw PCP 1 day ago. Denies dark stools or vomiting. Adult Sepsis Screening: The patient does not have new or worsening altered mentation. Patient's respiratory rate is less than 22. Systolic blood pressure is greater than 100. Patient has a qSOFA score of 0- Negative Sepsis Screen. Suicide/Homicide risk assessment- the patient denies having any suicidal and/or homicidal ideations and does not present with any other emotional, behavioral or mental health complaints. Status: Patient is not a customer service professional or dependent. Transition of care: patient was received from a primary care office; Dr Garcia. 13:41 Acuity: OTILIO Level 3 kr3 13:41 Method Of Arrival: Walkin/Carried/Asstd kr3 Triage Assessment: 13:44 General: Appears in no apparent distress, comfortable, Behavior is cooperative. Pain: kr3 Denies pain. Pt Declines HIV testing. Respiratory: Reports shortness of breath on exertion. GI:. GI: Denies nausea, vomiting. Derm: Reports swelling to abdomen and legs for several days. Historical: - Allergies: no known allergies; - Home Meds: 1. Adderall XR 20 mg oral cp24 once daily (Last dose: Unknown) 2. loratadine 10 mg Oral cap daily (Last dose: 04/05/2016) 3. naproxen Unknown Oral 2 times per day as needed (Last dose: 04/05/2016) - PMHx: Allergies, Seasonal; ADD; esophageal stricture; - PSHx: Upper Endoscopy with esophageal dilatation; - The history from nurses notes was reviewed: and elements of the historical information I have obtained differs from that reported to nursing. - Social history: Smoking status: Patient uses tobacco products, current some day smoker. No barriers to communication noted, The patient speaks fluent Slovenian, Speaks appropriately for age. - : The pt / caregiver states he / she is not on anticoagulants. Home medication list is obtained from the patient. - Hospitalizations: : No recent hospitalization is reported. - Exposure Risk Screening:: None identified. - Immunization history:: All immunizations up-to-date. - Family history: Not pertinent. - Social history:: the patient is a non-smoker, the patient does not drink alcohol. Screenin:58 Screening information is obtained from the patient. Fall risk: At risk due to dizziness ja5 upon exertion . Assistance ADL's: requires no assistance with activities of daily living. Abuse/DV Screen: The patient / caregiver reports he/she is: not in a situation that causes fear, pain or injury. Nutritional screening: On no prescribed diet. Advance Directives: Currently, there is no health care proxy. There is no active DNR order. There is no living will. There is no Power of Furnace Converter. home support is adequate. Assessment: 15:54 General: Appears in no apparent distress, Behavior is appropriate for age, cooperative. ja5 Pain: Denies pain. Neurological: Level of Consciousness is awake, alert, Oriented to person, place, time. Cardiovascular: Capillary refill is > 3 seconds Heart tones S1 S2 present Edema to bilateral ankles, patient also states he has been experiencing swelling to abdomen and face Rhythm is sinus rhythm No ectopy. Respiratory: Airway is patent Respiratory effort is even, unlabored, Respiratory pattern is regular, symmetrical, Breath sounds are clear bilaterally. Derm: Skin is intact, Skin is pale. 17:43 General: First unit of PRBC is infusing. Patient is awake, alert, oriented, pale to ja5 color with even unlabored respirations O2 sat 98%, SR on blocker polishing. He was educated on blood transfusions and possible reactions, patient states he feels fine at this time. . 19:26 General: Blood products infusing, pt tolerating well.. mv5 19:29 General: Appears in no apparent distress, comfortable, Behavior is cooperative, mv5 pleasant, Pt reports feeling hungry but has no other complaints at this time.. Pain: Denies pain. Neurological: Level of Consciousness is awake, alert, Oriented to person, place, time. Cardiovascular: Capillary refill is > 3 seconds Rhythm is sinus rhythm No ectopy. Respiratory: Airway is patent Respiratory effort is even, unlabored, Respiratory pattern is regular, symmetrical. Derm: Skin is intact, Skin is pale, Skin temperature is warm. 20:53 General: Appears in no apparent distress, comfortable, Behavior is cooperative, mv5 pleasant. Pain: Denies pain. Neurological: Level of Consciousness is awake, alert, Oriented to person, place, time. Cardiovascular: Rhythm is sinus rhythm No ectopy. Respiratory: Airway is patent Respiratory effort is even, unlabored, Respiratory pattern is regular, symmetrical. Derm: Skin is intact, Skin is pale, Skin temperature is warm. 22:04 General: Appears in no apparent distress, comfortable, Pt sitting up watching TV.. mv5 Pain: Denies pain. Neurological: Level of Consciousness is awake, alert, Oriented to person, place, time. Cardiovascular: Rhythm is sinus rhythm No ectopy. Respiratory: Airway is patent Respiratory effort is even, unlabored, Respiratory pattern is regular, symmetrical. Derm: Skin is pale, Skin temperature is warm. Vital Signs: 13:22 BP 143 / 59; Pulse 88; Resp 18 S; Temp 99.3(O); Pulse Ox 100% on R/A; Weight 82.1 kg gr2 (R); Height 6 ft. 0 in. (182.88 cm) (R); Pain 3/10; 15:51 BP 133 / 61 (auto/); jc4 15:55 Pulse 78 MON; Pulse Ox 99% ; jc4 19:25 BP 118 / 56 (auto/); mv5 19:26 BP 118 / 56; Pulse 82 MON; Resp 18; Temp 99.3(O); Pulse Ox 99% ; mv5 20:49 BP 143 / 69 (auto/); mv5 20:50 Pulse 76 MON; Pulse Ox 100% ; mv5 21:18 BP 129 / 66 (auto/); mv5 21:20 Pulse 74 MON; Pulse Ox 100% ; mv5 21:31 BP 127 / 61 (auto/); mv5 21:32 Pulse 84 MON; Pulse Ox 100% ; mv5 13:22 Body Mass Index 24.55 (82.10 kg, 182.88 cm) gr2 Vitals: 13:22 Log In Time: April 06, 2016 at 13:22. gr2 ED Course: 13:22 Patient visited by Lauryn Staples. gr2 13:22 Anuel Garcia is Private Physician. gr2 13:22 Patient moved to Waiting gr2 13:24 Patient visited by Lauryn Staples. gr2 13:24 Patient moved to Pre RCE gr2 13:42 Triage Initiated kr3 14:09 Valerie Elizalde,RN is Primary Nurse. kr3 14:09 Rose Mcgregor,RN is Primary Nurse. kr3 14:09 Patient moved to Triage 1 kr3 15:27 Type & Screen Sent. ar3 15:27 MED Profile Sent. ar3 15:27 CBC with Diff Sent. ar3 15:28 Inserted saline lock: 20 gauge in right antecubital area and blood collected. The kr3 patient tolerated the procedure well. 15:41 Josue Noel MD is Attending Physician. pc 15:42 Roxana Fonseca RN is Primary Nurse. kr3 15:42 Viki Ramirez,JAROCHO is Primary Nurse. kr3 15:42 Patient moved to 12 kr3 16:06 The patient / caregiver is instructed regarding the plan of care and ED course. jc4 16:07 Patient visited by Roxana Fonseca RN. jc4 16:09 Patient visited by Josue Noel MD. pc 16:09 DIFFERENTIAL NO CHARGE Sent. jc4 16:37 TIBC Sent. kcs 16:37 Iron (fe) Sent. kcs 16:42 Patient visited by Roxana Fonseca RN. jc4 17:01 [place] [place] was scanned into [employer] and attached to record. ks16 17:42 Patient visited by Viki Ramirez,JAROCHO. ja5 18:27 Treasure Everett real estate executive assistant. ys2 18:28 Treasure Everett is Hospitalizing Provider. pc 18:30 CT ABD & PELVIS: No Contrast Returned. EDMS 18:30 CT Chest Without Contrast Returned. EDMS 19:01 Primary Nurse role handed off by Rose Mcgregor,JAROCHO kr3 19:02 Primary Nurse role handed off by Roxana Fonseca RN jc4 19:02 Primary Nurse role handed off by Viki Ramirez,JAROCHO jc4 19:04 Cecilia Phillips,RN is Primary Nurse. mv5 19:29 Patient visited by Amado Moore PCA. kb5 19:32 Patient visited by Cecilia Phillips,JAROCHO. mv5 22:08 No procedures done that require assistance. mv5 22:08 Blood products: PRBCs X 2 units given. Second unit transfusing now. mv5 Order Results: Lab Order: CBC with Diff; SPEC'M 04/06/16 15:27 Test: WHITE BLOOD COUNT; Value: 8.4; Range: 4.0-10.0; Units: K/mm3; Status: F Test: RED BLOOD COUNT; Value: 2.05; Range: 4.30-6.10; Abnormal: Below low normal; Units: M/mm3; Status: F Test: HEMOGLOBIN; Value: 3.5; Range: 14.0-18.0; Abnormal: Critical Low; Units: g/dl; Status: F Test: HEMATOCRIT; Value: 14.2; Range: 42.0-52.0; Abnormal: Below low normal; Units: %; Status: F Test: MEAN CORPUSCULAR VOLUME; Value: 69.2; Range: 80.0-96.0; Abnormal: Below low normal; Units: fl; Status: F Test: MEAN CORPUSCULAR HEMOGLOBIN; Value: 17.2; Range: 27.0-33.0; Abnormal: Below low normal; Units: pg; Status: F Test: MEAN CORPUSCULAR HGB CONC; Value: 24.8; Range: 32.0-36.5; Abnormal: Below low normal; Units: g/dl; Status: F Test: RED CELL DISTRIBUTION WIDTH; Value: 31.9; Range: 11.5-14.5; Abnormal: Above high normal; Units: %; Status: F Test: PLATELET COUNT, AUTOMATED; Value: 709; Range: 150-450; Abnormal: Above high normal; Units: k/mm3; Status: F Test: NEUTROPHILS; Value: 72; Range: 35-75; Units: %; Status: F Test: LYMPHOCYTES; Value: 14; Range: 16-52; Abnormal: Below low normal; Units: %; Status: F Test: MONOCYTES; Value: 9; Range: 0-8; Abnormal: Above high normal; Units: %; Status: F Test: EOSINOPHILS; Value: 3; Range: 0-5; Units: %; Status: F Test: BASOPHILS; Value: 2; Range: 0-4; Units: %; Status: F Test: NUCLEATED RED BLOOD CELL; Value: 1; Range: 0-0; Abnormal: Above high normal; Units: %; Status: F Test: POLYCHROMASIA; Value: 2+; Status: F Test: HYPOCHROMASIA; Value: 3+; Status: F Test: POIKILOCYTOSIS; Value: 1+; Status: F Test: ANISOCYTOSIS; Value: 3+; Status: F Test: MICROCYTOSIS; Value: 3+; Status: F Test: SCHISTOCYTES; Value: 1+; Status: F Test: TEAR DROP CELLS; Value: 1+; Status: F Test: OVALOCYTES; Value: 2+; Status: F Lab Order: MED Profile; SPEC'M 04/06/16 15:27 Test: GLUCOSE, FASTING; Value: 89; Range: 70-105; Units: MG/DL; Status: F Test: BLOOD UREA NITROGEN; Value: 13; Range: 7-18; Units: MG/DL; Status: F Test: CREATININE FOR GFR; Value: 0.95; Range: 0.70-1.30; Units: MG/DL; Status: F Test: GLOMERULAR FILTRATION RATE; Value: > 60.0; Range: >60; Status: F Test: SODIUM LEVEL; Value: 143; Range: 136-145; Units: MEQ/L; Status: F Test: POTASSIUM SERUM; Value: 4.3; Range: 3.5-5.1; Units: MEQ/L; Status: F Test: CHLORIDE LEVEL; Value: 107; Range: 98-107; Units: MEQ/L; Status: F Test: CARBON DIOXIDE LEVEL; Value: 27; Range: 21-32; Units: MEQ/L; Status: F Test: ANION GAP; Value: 9; Range: 8-16; Units: MEQ/L; Status: F Test: CALCIUM LEVEL; Value: 7.8; Range: 8.5-10.1; Abnormal: Below low normal; Units: MG/DL; Status: F Test Note: ; Units are mL/min/1.73 m2 Chronic Kidney Disease Staging per NKF: Stage I & II GFR >=60 Normal to Mildly Decreased Stage III GFR 30-59 Moderately Decreased Stage IV GFR 15-29 Severely Decreased Stage V GFR <15 Very Little GFR Left ESRD GFR <15 on BOREMATIC MACHINE OPERATOR Lab Order: Type & Screen; SPEC'04/06/16 15:27 Test: BLOOD TYPE; Value: O POS; Status: F Test: AB SCREEN (INDIRECT BENIGNO)VIS; Value: NEGATIVE; Status: F Lab Order: PLATELET ESTIMATE; SPEC'M 04/06/16 15 Test: PLATELET ESTIMATE; Value: INCREASED; Range: NORMAL; Status: F Lab Order: TIBC; SPEC'M 04/06/16 15: Test: IRON (FE); Value: 7; Range: 65-175; Abnormal: Below low normal; Units: UG/DL; Status: F Test: TOTAL IRON BINDING CAPACITY; Value: 464; Range: 250-450; Abnormal: Above high normal; Units: UG/DL; Status: F Test: PERCENT SATURATION; Value: 1.5; Range: 19.7-37.4; Abnormal: Below low normal; Units: %; Status: F Lab Order: LIVER PROFILE; SPEC'M 04/06/16 Test: AST/SGOT; Value: 20; Range: 15-37; Units: U/L; Status: F Test: ALT/SGPT; Value: 21; Range: 12-78; Units: U/L; Status: F Test: ALKALINE PHOSPHATASE; Value: 60; Range: 45-117; Units: U/L; Status: F Test: BILIRUBIN,TOTAL; Value: 0.2; Range: 0.2-1.0; Units: MG/DL; Status: F Test: BILIRUBIN,DIRECT; Value: < 0.1; Range: 0.0-0.2; Units: MG/DL; Status: F Test: TOTAL PROTEIN; Value: 5.7; Range: 6.4-8.2; Abnormal: Below low normal; Units: GM/DL; Status: F Test: ALBUMIN; Value: 2.9; Range: 3.2-5.2; Abnormal: Below low normal; Units: GM/DL; Status: F Test: ALBUMIN/GLOBULIN RATIO; Value: 1.04; Range: 1.00-1.93; Status: F Radiology Order: CT Chest Without Contrast Test: CT Chest Without Contrast REASON FOR EXAMINATION: anemia, dysphagia; Clinical: Anemia with dysphasia.; ; Findings:; The bilateral lung negron are relatively well aerated, symmetric and essentially; clear. Minimal posterior basilar dependent changes are suggested. No; consolidation, nodule or mass lesion. No pleural effusion/reaction or; pneumothorax. Small calcified granuloma in the right upper lobe as well as; calcified mediastinal/right hilar lymph nodes compatible with prior granulomas; disease. Mild cardiomegaly cannot be excluded. No pericardial effusion.; Surrounding musculoskeletal structures are intact.; ; Impression:; 1. Evidence of prior granulomas disease.; 2. Question mild cardiomegaly and left ventricular prominence raising the; possibility of cardiomyopathy and cardiology evaluation may be warranted.; 3. No acute mediastinal or pleuroparenchymal process.; ; ; Signed by; Hamlet Herbert MD 04/06/2016 06:14 P; Radiology Order: CT ABD & PELVIS: No Contrast Test: CT ABD & PELVIS: No Contrast REASON FOR EXAMINATION: anemia, appetite change; Clinical: Anemia with abdominal pain with; ; Findings:; Liver and spleen demonstrate parenchymal calcifications suggesting prior; granulomas disease. Pancreas, gallbladder, bilateral adrenal glands and kidneys; are relatively normal for noncontrast evaluation. The enteric system is without; obstruction or obvious acute inflammatory process. Pelvis demonstrates normal; bladder and age appropriate prostate/seminal vesicles. No significant ascites.; No obvious free air. Musculoskeletal structures without focal osseous; abnormality. Lung bases demonstrate minimal dependent changes.; ; Impression:; Limited examination due to the lack of contrast material and paucity of; intraperitoneal fat. No obvious abnormality identified. Chronic granulomas; disease with small parenchymal calcifications in the liver and spleen.; ; ; Signed by; Hamlet Herbert MD 04/06/2016 06:11 P; Outcome: 18:29 Decision to Hospitalize by Provider. 22:08 Discharge Assessment: Patient awake, alert and oriented x 3. No cognitive and/or mv5 functional deficits noted. Patient verbalized understanding of disposition instructions. patient administered narcotics - no. The following High Risk Discharge criteria are identified: None. Admitted to PCU. Condition: stable. Condition: stable. 22:08 CT Study completed. Admission hand-off: Report called to PCU. Property :Personal mv5 belongings accompany Pt. 22:11 Patient left the ED. mv5 Signatures: Dispatcher [employer] EDMS Josue Noel MD MD pc Sleeman, Kacey RN Rose Childers RN RN kr3 Amado Moore, DEALER ACCOUNTS INVESTIGATOR DEALER ACCOUNTS INVESTIGATOR kb5 Radha Leblanc, DEALER ACCOUNTS INVESTIGATOR DEALER ACCOUNTS INVESTIGATOR ar3 Roxana Fonseca RN RN jc4 Lauryn Staples gr2 Treasure Everett ys2 Micaela Richter, Reg Reg ks16 Viki RamirezRN RN ja5 Cecilia PhillipsRN RN mv5 Corrections: (The following items were deleted from the chart) 16:04 15:54 Cardiovascular: Capillary refill is > 3 seconds Heart tones S1 S2 present Rhythm ja5 is sinus rhythm No ectopy. ja5 17:06 13:44 PSHx: none; kr3 pc Chart Complete MTDD
--- NOTE | 2016-04-09 07:56 | DSES ---
DATE OF ADMISSION: 04/06/2016 DATE OF DISCHARGE: 04/08/2016 Specialists involved in her care included Dr. Enciso. Procedures performed during her stay included upper endoscopy, including balloon dilatation of his esophagus as well as two biopsies. Discharge diagnoses is: 1. Severe iron deficiency anemia. 2. Attention deficit disorder. 3. Outpatient use of kratom. 4. Eosinophilic esophagitis with esophageal strictures, possible celiac disease. The following is a summary of his hospitalization: This is a 30-year-old who presented with worsening shortness of breath, dizziness and leg swelling. He was found to be severely anemic, which was found to be iron deficiency anemia. Had been previously seen by Dr. Enciso for known esophageal stricture. Was taken to the endoscopy suite and was found to have what was thought to be eosinophilic esophagitis with multiple strictures. These were ballooned. He was instructed to follow a soft diet and was started on a proton pump inhibitor (PPI), which will be continued as an outpatient in a liquid form due to his inability to swallow pills easily. He was also given intravenous (IV) iron, one dose during his stay as his ferritin was 2, and I have some concerns about his ability to absorb oral iron. He was also given 5 units of packed red blood cells during his stay, and pathology specimens are pending as well as tissue transglutaminase lab values. On day of discharge, he is tolerating a diet. He has no complaints of pain. No chest pain. No shortness of breath. Temperature is 98, pulse 73, respiratory rate 18, blood pressure 132/78, 99% on room air. Awake and alert, pleasant, easily conversant. Breathing symmetrical, rested. Heart is in regular rate and rhythm. Abdomen is soft, doughy, nontender. Hemoglobin is 8.6. Creatinine 0.96. Discharge instructions include the following: Followup with Dr. Garcia 04/19/2016 at 9:30, Dr. Enciso 04/15/2016 at 3:15. Soft diet. Activity as tolerated. Continue Prevacid 30 mg by mouth twice daily, liquid form, iron supplement 325 mg by mouth daily, which he will need to chew in order swallow. Continue Adderall as ordered. Continue Claritin 10 mg by mouth daily at bedtime. I have recommended that he discontinue his Naprosyn. He is given a prescription for a complete blood count (CBC) to be done on 04/20/2016.
[2016-04-10 00:06] LABS: TISSUE TRANSGLUTAMINASE IgG <2 U/mL (0-5)
== END 2016-04-08 11:10 | disposition home or self-care (01) | DRG 663 ==
LOC: M ED 13:20 → M ED INP 19:03 → M PCU 22:15 → M PED 04-07 17:22
PROVIDERS: ADMIT Internal Medicine; ATTEND Internal Medicine
PROC: 30253N1 (ICD-10-PCS; 2016-04-06)
PROC: 0DB38ZX Excision of Lower Esophagus, Via Natural or Artificial Opening Endoscopic, Diagnostic (ICD-10-PCS; 2016-04-07)
PROC: 0DB98ZX Excision of Duodenum, Via Natural or Artificial Opening Endoscopic, Diagnostic (ICD-10-PCS; 2016-04-07)
PROC: 0D738ZZ Dilation of Lower Esophagus, Via Natural or Artificial Opening Endoscopic (ICD-10-PCS; 2016-04-07)
PROC: 0D718ZZ Dilation of Upper Esophagus, Via Natural or Artificial Opening Endoscopic (ICD-10-PCS; 2016-04-07)
PROC: 0DB18ZX Excision of Upper Esophagus, Via Natural or Artificial Opening Endoscopic, Diagnostic (ICD-10-PCS; principal; 2016-04-07 14:45)
DX: D50.9 Iron deficiency anemia, unspecified (principal); K90.0 Celiac disease; K22.2 Esophageal obstruction; F90.9 Attention-deficit hyperactivity disorder, unspecified type; K20.0 Eosinophilic esophagitis; Z87.891 Personal history of nicotine dependence; Z79.899 Other long term (current) drug therapy

== ENCOUNTER 2018-10-21 17:53 | Emergency (ER) | payer BC, SELFPAY ==
[~2018-10-21] VITALS: Ht 180.3 cm; Wt 77.7 kg
[2018-10-21 17:53] VITALS: BP 116/63
[~2018-10-21 17:53] MED LIST changes: -/MAGN40TA PO; +ADDE20CA3 PO; +CLAR1TAB2 PO; +FIRS3SUS PO; +HYDR-4274 PO; -HYDRO50TAB PO; +IRON65TA PO; +MAGN400T15 PO; +NAPR1TAB86 PO
[2018-10-21] MEDS ORDERED: SERT-138 (18:08)
[2018-10-21] MEDS ORDERED: PHEN60TA9 PO (20:12)
[2018-10-21] MEDS ORDERED: PHENobarbital 30 MG TAB PO ONE (20:15)
== END 2018-10-21 20:23 | disposition home or self-care (01) ==
LOC: M ED 17:53
DX: F11.23 Opioid dependence with withdrawal (principal); J30.89 Other allergic rhinitis

== ENCOUNTER 2018-10-22 00:54 | Emergency (ER) | payer SELFPAY ==
[~2018-10-22] VITALS: Ht 180.3 cm; Wt 77.7 kg
[~2018-10-22 00:54] MED LIST changes: +PHEN60TA9 PO; +SERT-138
[2018-10-22] MEDS ORDERED: METAL LOCK LOOP XX ONE (01:05)
[2018-10-22] MEDS ORDERED: PHENobarbital 30 MG TAB PO ONE ×2 (01:30→01:45)
[2018-10-22 02:35] VITALS: BP 110/62
== END 2018-10-22 02:55 | disposition home or self-care (01) ==
LOC: M ED 00:54
DX: F19.939 Other psychoactive substance use, unspecified with withdrawal, unspecified (principal); F41.9 Anxiety disorder, unspecified; Z79.899 Other long term (current) drug therapy

== ENCOUNTER 2018-10-23 03:32 | Emergency (ER) | payer SELFPAY ==
[~2018-10-23] VITALS: Ht 180.3 cm; Wt 78.2 kg
[2018-10-23 03:32] VITALS: BP 135/72
== END 2018-10-23 04:12 | disposition home or self-care (01) ==
LOC: M ED 03:32
DX: F11.10 Opioid abuse, uncomplicated (principal); Z76.5 Malingerer [conscious simulation]; Z72.89 Other problems related to lifestyle

== ENCOUNTER 2023-12-25 05:45 | Emergency (ER) | payer OTHER ==
[~2023-12-25] VITALS: Ht 182.9 cm; Wt 86.7 kg
[2023-12-25 06:35] LABS: BASO % 0.1 % (0.0-1.0); HEMATOCRIT 38.2 % (42.0-52.0); HEMOGLOBIN 12.7 g/dl (13.5-17.5); LYMPH # 2.6 10^3/uL (1.5-5.0); LYMPH % 35.7 % (24.0-44.0); MEAN CORPUSCULAR HEMOGLOBIN 29.3 pg (27.0-33.0); MEAN CORPUSCULAR HGB CONC 33.2 g/dl (32.0-36.5); MONO # 0.8 10^3/uL (0.0-0.8); MONO % 10.6 % (2.0-8.0); NEUTROPHILS # 3.9 10^3/uL (1.5-8.5); NEUTROPHILS % 53.3 % (36.0-66.0); PLATELET COUNT, AUTOMATED 171 10^3/uL (150-450); RED BLOOD COUNT 4.34 10^6/uL (4.30-6.10); WHITE BLOOD COUNT 7.3 10^3/uL (4.0-10.0)
[2023-12-25 07:07] LABS: ETHYL ALCOHOL (ETHANOL) 0.003 % (0.000-0.010)
[2023-12-25 07:09] LABS: ALBUMIN 3.3 G/DL (3.2-5.2); ALKALINE PHOSPHATASE 99 U/L (40-129); ALT/SGPT 20 U/L (7.0-40); AST/SGOT 14 U/L (<34); BILIRUBIN,DIRECT < 0.1 MG/DL (<0.4); BILIRUBIN,TOTAL 0.2 MG/DL (0.3-1.2); BLOOD UREA NITROGEN 15 MG/DL (9-23); CALCIUM LEVEL 8.6 MG/DL (8.5-10.1); CARBON DIOXIDE LEVEL 27 MMOL/L (20-31); CHLORIDE LEVEL 103 MMOL/L (98-107); CREATININE FOR GFR 0.76 MG/DL (0.70-1.30); GLOMERULAR FILTRATION RATE > 60.0 (>60); GLUCOSE, FASTING 125 MG/DL (60-100); MAGNESIUM LEVEL 1.8 MG/DL (1.8-2.4); POTASSIUM SERUM 3.6 MMOL/L (3.5-5.1); SODIUM LEVEL 139 MMOL/L (136-145)
[2023-12-25 07:18] LABS: BARBITURATES URINE NEGATIVE (NEGATIVE); BENZODIAZEPINES URINE NEGATIVE (NEGATIVE); COCAINE METABOLITE URINE NEGATIVE (NEGATIVE)
[2023-12-25 07:19] LABS: CANNABINOIDS URINE NEGATIVE (NEGATIVE); METHADONE URINE NEGATIVE (NEGATIVE); OPIATES URINE NEGATIVE (NEGATIVE); PHENCYCLIDINE URINE NEGATIVE (NEGATIVE)
[2023-12-25 07:25] LABS: AMPHETAMINES LEVEL URINE POSITIVE (NEGATIVE)
[2023-12-25 08:00] VITALS: BP 143/84
[2023-12-25] MEDS ORDERED: DEPA1TAB3 PO (08:04)
[2023-12-25 08:08] VITALS: TEMP 97.2; O2SAT 97
[2023-12-25] MEDS ORDERED: DEPA1CAP PO (08:27)
== END 2023-12-25 08:29 | disposition home or self-care (01) ==
LOC: EDBD 05:45 → M ED 05:45
DX: G40.89 Other seizures (principal); F32.A Depression, unspecified; F17.220 Nicotine dependence, chewing tobacco, uncomplicated; Z91.09 Other allergy status, other than to drugs and biological substances; Z79.899 Other long term (current) drug therapy

== ENCOUNTER → 2024-06-18 | Outpatient (CLI) | payer OTHER ==
[~2024-06-18] MED LIST changes: +DEPA1CAP PO; +DEPA1TAB3 PO
[2024-06-18 16:22] LABS: EOS % 0.2 % (0.0-3.0); HEMATOCRIT 38.8 % (42.0-52.0); HEMOGLOBIN 12.7 g/dl (13.5-17.5); LYMPH # 1.9 10^3/uL (1.5-5.0); LYMPH % 36.4 % (24.0-44.0); MEAN CORPUSCULAR HEMOGLOBIN 30.1 pg (27.0-33.0); MEAN CORPUSCULAR HGB CONC 32.7 g/dl (32.0-36.5); MEAN CORPUSCULAR VOLUME 91.9 fl (80.0-96.0); MONO # 0.6 10^3/uL (0.0-0.8); MONO % 11.9 % (2.0-8.0); NEUTROPHILS # 2.7 10^3/uL (1.5-8.5); NEUTROPHILS % 51.1 % (36.0-66.0); PLATELET COUNT, AUTOMATED 188 10^3/uL (150-450); RED BLOOD COUNT 4.22 10^6/uL (4.30-6.10); WHITE BLOOD COUNT 5.3 10^3/uL (4.0-10.0)
[2024-06-18 16:39] LABS: VALPROIC ACID (DEPAKOTE) 28.5 UG/ML (50.0-100.0)
[2024-06-18 16:41] LABS: ALBUMIN 3.2 G/DL (3.2-5.2); ALKALINE PHOSPHATASE 61 U/L (40-129); ALT/SGPT 28 U/L (7.0-40); AST/SGOT 17 U/L (<34); BILIRUBIN,TOTAL 0.3 MG/DL (0.3-1.2); BLOOD UREA NITROGEN 14 MG/DL (9-23); CALCIUM LEVEL 8.1 MG/DL (8.5-10.1); CARBON DIOXIDE LEVEL 31 MMOL/L (20-31); CHLORIDE LEVEL 104 MMOL/L (98-107); CREATININE FOR GFR 0.64 MG/DL (0.70-1.30); GLOMERULAR FILTRATION RATE > 90.0 (>60); GLUCOSE, FASTING 113 MG/DL (60-100); SODIUM LEVEL 141 MMOL/L (136-145); TOTAL PROTEIN 6.4 G/DL (5.7-8.2)
== END ==
LOC: M LAB 15:44
PROVIDERS: ATTEND Psychiatry & Neurology Neurology
DX: R56.9 Unspecified convulsions (principal)